=== PATIENT | female | born 1940 | race Caucasian/White ===

== ENCOUNTER 2020-11-19 14:34 | Outpatient (CLI) | payer MEDICARE | END 2020-11-19 14:35 | disposition home or self-care (01) | LOC: CSHMAMMO 14:34 | PROVIDERS: ATTEND Family Medicine | DX: Z12.31 Encounter for screening mammogram for malignant neoplasm of breast (principal); Z98.890 Other specified postprocedural states | CPT/HCPCS: 77063; 77067 ==

== ENCOUNTER 2020-12-02 16:04 | Emergency (ER) | payer MEDICARE ==
[2020-12-02] MEDS ORDERED: Methocarbamol 1 GM/10 ML VIAL IM SCH (17:30)
[2020-12-02] MEDS ORDERED: Methocarbamol 500 MG TAB PO SCH (18:00)
== END 2020-12-02 18:30 | disposition home or self-care (01) ==
LOC: CSHERS 16:04
DX: M54.50 Low back pain, unspecified (principal); E03.9 Hypothyroidism, unspecified; K21.9 Gastro-esophageal reflux disease without esophagitis; Z79.899 Other long term (current) drug therapy
CPT/HCPCS: 99283; J2800

== ENCOUNTER 2021-03-25 13:41 | Emergency (ER) | payer MEDICARE | END 2021-03-25 16:49 | disposition home or self-care (01) | LOC: CSHERS 13:41 | DX: S06.0X1A Concussion with loss of consciousness of 30 minutes or less, initial encounter (principal); I10 Essential (primary) hypertension; K21.9 Gastro-esophageal reflux disease without esophagitis; E03.9 Hypothyroidism, unspecified; W19.XXXA Unspecified fall, initial encounter | CPT/HCPCS: 70450; 72125 ==

== ENCOUNTER 2022-05-26 08:37 | Emergency (ER) | payer MEDICARE ==
[2022-05-26] MEDS ORDERED: hydrALAZINE 20 MG/ML VIAL ONE (09:17)
[2022-05-26] MEDS ORDERED: Meclizine HCl 25 MG TAB ONE (09:17)
[2022-05-26 10:18] LABS: #Monocytes 0.5 10x3/uL (0.0-1.1); #Neutrophils 4.6 10x3/uL (1.5-8.4); %Basophils 0.6 % (0.0-2.0); %Eosinophils 0.6 % (0.0-6.0); %Lymphocytes 25.3 % (18.0-47.0); %Monocytes 7.1 % (0.0-10.0); %Neutrophils 65.7 % (40.0-75.0); Hemoglobin 16.9 g/dL (12.0-15.5); Mean Corpuscular HGB CONC 35.3 g/dL (32.0-36.0); Mean Corpuscular Hemoglobin 31.6 pg (27.0-33.0); Mean Corpuscular Volume 89.7 fl (81.6-98.3); Mean Platelet Volume 9.7 fl (7.4-10.4); Platelet Count 159 10x3/uL (150-450); RBC Distribution Width 12.9 % (11.5-14.5); Red Blood Cell (RBC) Count 5.34 10x6/uL (3.90-5.03)
[2022-05-26 10:38] LABS: Anion Gap 15 mmol/L (10-20); BUN (Urea Nitrogen) 15 mg/dL (9.8-20.1); Calc. Creatinine Clearance 0 mL/min (70-130); Calcium 8.9 mg/dL (7.8-10.44); Carbon Dioxide 22 mmol/L (23-31); Chloride 105 mmol/L (98-107); Estimated GFR 56; Glucose 110 mg/dL (83-110); Magnesium 1.8 mg/dL (1.6-2.6); Potassium 3.1 mmol/L (3.5-5.1); Sodium 139 mmol/L (136-145)
[2022-05-26] MEDS ORDERED: Potassium Bicarbonate/Cit Ac 20 MEQ TAB PO SCH (12:45)
== END 2022-05-26 14:10 | disposition home or self-care (01) ==
LOC: CSHERS 08:37
DX: R11.2 Nausea with vomiting, unspecified (principal); R42 Dizziness and giddiness; E03.9 Hypothyroidism, unspecified; Z79.899 Other long term (current) drug therapy
CPT/HCPCS: 70450; 70551; 80048; 83735; 85025; 93005; 96374; 99284; J0360; 36415

== ENCOUNTER 2022-12-19 13:01 | Emergency (ER) | payer MEDICARE ==
[2022-12-19] MEDS ORDERED: Naproxen 500 MG TAB ONE (16:27)
== END 2022-12-19 17:00 | disposition home or self-care (01) ==
LOC: CSHERS 13:01
DX: M25.562 Pain in left knee (principal); I10 Essential (primary) hypertension
CPT/HCPCS: 99283

== ENCOUNTER 2024-02-17 12:25 | Emergency (ER) | payer BC, MEDICARE ==
[2024-02-17] MEDS ORDERED: Aspirin 81 mg Enteric Coated Tablet ONE (13:14)
[2024-02-17] MEDS ORDERED: Aspirin Chewable 81 MG TAB ONE (13:17)
[2024-02-17 13:33] LABS: #Basophils 0.04 10x3/uL (0.0-0.2); #Eosinophils 0.15 10x3/uL (0.0-0.5); #Monocytes 0.89 10x3/uL (0.0-1.1); #Neutrophils 6.19 10x3/uL (1.5-8.4); %Basophils 0.4 % (0.0-2.0); %Eosinophils 1.7 % (0.0-6.0); %Lymphocytes 18.6 % (18.0-47.0); %Monocytes 9.9 % (0.0-10.0); %Neutrophils 69.1 % (40.0-75.0); Hematocrit 46.1 % (34.9-44.5); Hemoglobin 15.8 g/dL (12.0-15.5); Mean Corpuscular HGB CONC 34.3 g/dL (32.0-36.0); Mean Corpuscular Hemoglobin 30.9 pg (27.0-33.0); Mean Corpuscular Volume 90.2 fL (81.6-98.3); Mean Platelet Volume 9.9 fL (7.4-10.4); Platelet Count 159 10x3/uL (150-450); RBC Distribution Width 13.1 % (11.5-14.5); Red Blood Cell (RBC) Count 5.11 10x6/uL (3.90-5.03); White Blood Cell (WBC) Count 8.97 10x3/uL (3.5-10.5)
[2024-02-17 13:36] LABS: ALT (SGPT) 16 U/L (8-55); AST (SGOT) 28 U/L (5-34); Alkaline Phosphatase 82 U/L (40-110); Anion Gap 15 mmol/L (10-20); BUN (Urea Nitrogen) 16 mg/dL (9.8-20.1); Bilirubin, Total 0.9 mg/dL (0.2-1.2); Calc. Creatinine Clearance 0 mL/min (70-130); Calcium 9.7 mg/dL (7.8-10.44); Carbon Dioxide 27 mmol/L (23-31); Chloride 103 mmol/L (98-107); Estimated GFR 37; Globulin 3.4 g/dL (2.4-3.5); Glucose 110 mg/dL (83-110); Lipase 12 U/L (8-78); Protein, Total 7.4 g/dL (5.8-8.1); Sodium 142 mmol/L (136-145)
[2024-02-17 13:40] LABS: Troponin I 0.014 ng/mL (< 0.028)
[2024-02-17 14:19] LABS: INR-International Normal Ratio 1.2; PTT 32.2 sec (22.0-33.0); Prothrombin Time 12.5 sec (9.5-12.1)
== END 2024-02-17 15:21 | disposition home or self-care (01) ==
LOC: CSHERS 12:25
DX: I10 Essential (primary) hypertension (principal); R07.89 Other chest pain; R00.1 Bradycardia, unspecified; E03.9 Hypothyroidism, unspecified; K21.9 Gastro-esophageal reflux disease without esophagitis; Z79.899 Other long term (current) drug therapy; Z79.890 Hormone replacement therapy
CPT/HCPCS: 71045; 80053; 83690; 83735; 83880; 84484; 85025; 85610; 85730; 93005